=== PATIENT | female | born 1985 | race Caucasian/White ===

== ENCOUNTER 2021-03-24 11:14 | Emergency (ER) | payer MEDICAID ==
[~2021-03-24] VITALS: Ht 167.6 cm; Wt 73.5 kg
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
--- NOTE | 2021-03-24 11:25 | NUR ---
Pt has infant child. No injuries noted to pt's female child and is behaving appropriately with mother. Addendum: 03/24/[address] Deras was consulted if patient's child should be assessed. Per states that pt's child was in her car seat and does not need to be examined.
--- NOTE | 2021-03-24 11:31 | NUR ---
Officer yeni Cao#[id number]
[2021-03-24 11:34] LABS: *BILIRUBIN,URIN NEGATIVE (NEGATIVE); *BLOOD, URINE NEGATIVE (NEGATIVE); *CLARITY,URINE SLIGHTLY CLOUDY (CLEAR); *COLOR,URINE YELLOW (YELLOW); *KETONES,URINE NEGATIVE (NEGATIVE); *UROBILINOGEN,URINE 0.2 E.U./dl (NORMAL); LEUKOCYTE ESTERASE ,URINE NEGATIVE (NEGATIVE); NITRITE, URINE NEGATIVE (NEGATIVE); PH,URINE 5.5 (5.0-8.0); UGLUCOSE NEGATIVE (NEGATIVE)
--- NOTE | 2021-03-24 11:43 | NUR ---
Pt's sister Bailey took pt's infant daughter home.
[2021-03-24] MEDS ORDERED: OXYCODONE HCL 5 MG TABLET PO ONE (11:45)
--- NOTE | 2021-03-24 11:45 | NUR ---
mirlande at bedsidea and Dr. Deras at bedside.
[2021-03-24] MEDS ORDERED: OXYCODONE HCL 5 MG TABLET ONE (11:46)
[2021-03-24 11:48] LABS: *AMPHETAMINE, URINE POSITIVE (NEGATIVE); *CANNABINOID, URINE NEGATIVE (NEGATIVE); *COCCAINE, URINE NEGATIVE (NEGATIVE); *OPIATE, URINE NEGATIVE (NEGATIVE); *PHENCYCLIDINE SCREEN,URINE NEGATIVE (NEGATIVE)
--- NOTE | 2021-03-24 11:57 | NUR ---
sling placed onto Lt shoulder.
--- NOTE | 2021-03-24 12:09 | NUR ---
pt's urine tox screen positive for amphetamines; paged instructor ground services for consult, no answer.
[2021-03-24 12:12] LABS: ETHANOL < 3 MG/DL (0-0)
[2021-03-24] MEDS ORDERED: NAPR-1192 PO (12:16)
--- NOTE | 2021-03-24 12:23 | NUR ---
Per Dr. Deras pt stable for discharge. Pt refused DC vitals and CD with xray. Instructed pt to follow up with primary care provider for referral for ortho specialist. Verbalized understanding. Left ER in stable condition.
[2021-03-24 13:28] LABS: BACTERIA,URINE FEW /HPF (NONE SEEN); RBC,URINE 0-3 /HPF (0-3); WBC,URINE 0-3 /HPF (0-3)
[2021-03-24 13:29] LABS: MUCUS,URINE FEW /LPF (0-FEW); SQUAMOUS EPITHELIAL CELL,UR MODERATE /HPF (NONE SEEN)
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
--- NOTE | 2021-03-24 15:55 | NUR ---
Spoke with Laci Sheikh and provided further details. Per Laci Sheikh referral number is [id number]. Rachele, social media marketing specialist made aware. Addendum: 03/24/21 at 1557 by BOBBI DCFS report made to Laci Sheikh
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
== END 2021-03-24 12:27 | disposition home or self-care (01) ==
LOC: ER 11:14
DX: S42.292A Other displaced fracture of upper end of left humerus, initial encounter for closed fracture (principal); V48.5XXA Car driver injured in noncollision transport accident in traffic accident, initial encounter; Y92.411 Interstate highway as the place of occurrence of the external cause; R82.5 Elevated urine levels of drugs, medicaments and biological substances
CPT/HCPCS: 36415; 73030; 73070; A4663; G0480